=== PATIENT | female | born 1970 ===

== ENCOUNTER 2018-12-07 15:06 | Inpatient (IN) | payer MEDICAID, SELFPAY ==
[2018-12-07] MEDS ORDERED: Propranolol 1 mg/mL Inj IV STA (15:30)
[2018-12-07] MEDS ORDERED: Propranolol 1 mg/mL Inj ONE (15:52)
[2018-12-07 15:57] LABS: BASO % 0.3 % (0.0-2.0); EOS % 0.3 % (0.0-4.0); HEMOGLOBIN 10.2 g/dL (12.0-16.0); LYMPH # 2.1 K/uL (1.0-4.3); LYMPH % 23.4 % (20.0-40.0); MEAN CELL VOLUME 78.6 fl (81.0-99.0); MONO # 0.6 K/uL (0.0-0.8); MONO % 7.4 % (0.0-10.0); NEUT % 68.6 % (50.0-75.0); NRBC % 0.1 % (0.0-0.0); RBC 3.93 Mil/uL (3.80-5.20); RED CELL DISTRIBUTION WIDTH 15.3 % (11.5-14.5); WHITE BLOOD COUNT 8.8 K/uL (4.8-10.8)
[2018-12-07 16:03] LABS: INR 1.1; PROTHROMBIN TIME 12.4 Seconds (9.8-13.1)
--- NOTE | 2018-12-07 16:05 | ED PDOC ---
HPI: Hypertension/Hypotension Time Seen by Provider: 12/07/18 15:19 Chief Complaint (Nursing): Palpitations Chief Complaint (Provider): Palpitations History Per: Patient History/Exam Limitations: no limitations Onset/Duration Of Symptoms: Days (x6 months) Current Symptoms Are (Timing): Intermittent Episodes Associated Symptoms: Chest Pain (pressure), Other (lightheadedness and shortness of breath) Additional Complaint(s): Tonya Welch is a 48 year old female, with a past medical history of HTN, who presents to the emergency department complaining of intermittent palpitations over the last x6 months. Patient states palpitation come and go associated with lightheadedness, some chest pressure and shortness of breath. She was recently evaluated at the clinic and demonstrated she had hyperthyroidism. She started her medications x20 days ago, however palpitations persist. At her follow up visit today, she had severe tachycardia and was sent to the ER. Patient reports compliance with medications. She denies any syncopal episode or other medical complaints. PMD: Arron Fry Past Medical History Reviewed: Historical Data, Nursing Documentation, Vital Signs Vital Signs: Last Vital Signs Temp 98.7 F 12/07/18 15:11 Pulse 140 H 12/07/18 15:51 Resp 20 12/07/18 15:11 BP 176/89 H 12/07/18 15:11 Pulse Ox 99 12/07/18 15:11 - Medical History PMH: Hyperthyroidism - Surgical History Surgical History: No Surg Hx - Family History Family History: States: Hypertension - Social History Current smoker - smoking cessation education provided: No Alcohol: None Drugs: Denies - Home Medications Home Medications: Ambulatory Orders Medication Instructions Recorded Lisinopril [Zestril] 10 mg PO DAILY 12/07/18 methIMAzole [Tapazole] 5 mg PO BID 12/07/18 - Allergies Allergies/Adverse Reactions: Allergies Allergy/AdvReac Type Severity Reaction Status Date / Time No Known Allergies Allergy Verified 12/07/18 15:11 Review of Systems ROS Statement: Except As Marked, All Systems Reviewed And Found Negative Cardiovascular: Positive for: Chest Pain (pressure), Palpitations, Light Headedness Respiratory: Positive for: Shortness of Breath Neurological: Negative for: Other (syncope) Physical Exam - Reviewed Nursing Documentation Reviewed: Yes Vital Signs Reviewed: Yes - Physical Exam Appears: Positive for: No Acute Distress, Uncomfortable Head Exam: Positive for: ATRAUMATIC, NORMAL INSPECTION, NORMOCEPHALIC Skin: Positive for: Warm, Dry Eye Exam: Positive for: EOMI, PERRL ENT: Positive for: Normal ENT Inspection Neck: Positive for: Painless ROM, Supple Cardiovascular/Chest: Positive for: Tachycardia (regular rhythm). Negative for: Murmur Respiratory: Positive for: Normal Breath Sounds. Negative for: Respiratory Distress Gastrointestinal/Abdominal: Positive for: Soft. Negative for: Tenderness Back: Positive for: Normal Inspection. Negative for: Muscle Spasm Extremity: Positive for: Normal ROM (upper and lower extremities). Negative for: Deformity Lymphatic: Negative for: Adenopathy Neurologic/Psych: Positive for: Alert, Oriented, Mood/Affect (Mildly anxious) - Laboratory Results Result Diagrams: 12/07/18 15:33 12/07/18 15:33 - ECG ECG: Positive for: Interpreted By Nm ECG Rhythm: Positive for: Sinus Tachycardia, Nonspecific Changes O2 Sat by Pulse Oximetry: 99 (RA) Pulse Ox Interpretation: Normal - Radiology X-Ray: Interpreted by Nm X-Ray Interpretation: No Acute Disease Medical Decision Making Medical Decision Making: Time: 15:19 Initial Impression: hyperthyroidism/Thyroitoxicosis Initial Plan: --Type and screen --EKG --BNP --CMP --Drug screen, urine --Free T4 --Magnesium --Phosphorus --T3 --TSH --Troponin I --Urine --Urine dipstick --CBC w/ differential --PTT --PT --Chest portable [RAD] --Thyroglobulin panel --Propranolol Inj 1 mg IV --Reevaluation 15:30 -Patient to be hospitalized for uncontrollable thyroids. -MARI Zhu [facility] resident - Scribe Attestation: Documented by Prasanth Barton, acting as a scribe for Malka Ypa MD Provider Scribe Attestation: All medical record entries made by the Scribe were at my direction and personally dictated by me. I have reviewed the chart and agree that the record accurately reflects my personal performance of the history, physical exam, medical decision making, and the department course for this patient. I have also personally directed, reviewed, and agree with the discharge instructions and disposition. Time: 1700 -- DW Dr Baum Hospitalist and transferred care. 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 Blanco. Orders placed as per discussion. Scribe Attestation: Documented by Taz Cintron, acting as a scribe for Malka Yap MD. Provider Scribe Attestation: All medical record entries made by the Scribe were at my direction and personally dictated by me. I have reviewed the chart and agree that the record accurately reflects my personal performance of the history, physical exam, medical decision making, and the department course for this patient. I have also personally directed, reviewed, and agree with the discharge instructions and disposition. Disposition - Clinical Impression Clinical Impression: Hyperthyroidism, Thyrotoxicosis Counseled Patient/Family Regarding: Studies Performed, Diagnosis - Disposition Disposition Time: 16:00 Condition: FAIR - Pt Status Changed To: Hospital Disposition Of: Inpatient - Admit Certification Admit to Inpatient:: After my assessment, the patient will require hospitalization for at least two midnights. This is because of the severity of symptoms shown, intensity of services needed, and/or the medical risk in this patient being treated as an outpatient. - POA Present On Arrival: None
[2018-12-07 16:06] LABS: PARTIAL THROMBOPLASTIN TIME 39.7 Seconds (25.6-37.1)
[2018-12-07 16:14] LABS: ALB/GLOB RATIO 1.1 (1.0-2.1); ALBUMIN 4.4 g/dL (3.5-5.0); ALT/SGPT 29 U/L (9-52); AST/SGOT 29 U/L (14-36); BLOOD UREA NITROGEN 8 mg/dl (7-17); GFR NON-AFRICAN AMERICAN > 60
[2018-12-07 16:25] LABS: B-TYPE NATRIURETIC PEPTIDE 914 pg/ml (0-450)
[2018-12-07 16:44] LABS: T3 5.51 nmol/L (1.49-2.60)
--- NOTE | 2018-12-07 17:06 | CP.PCM.HP ---
<Bernardo Longoria - Last Filed: 12/07/18 18:21> History of Present Illness - History of Present Illness History of Present Illness: 48 y/o F with a PMHx of recently diagnosed Hyperthyroidism, HTN was sent to ED from [facility] clinic due to tachycardia. Pt reports feeling palpitations, nervousness and shaking for several months. Pt reports 25 lb weight loss, her weight was 153 lbs 7 months ago and now 128 lbs. Pt has had diarrhea for ~7 months. Pt was initiated on Methimazole 5mg BID with NO improvement of symptoms. -LMP 11/28/18. Regular menses, 3 days of bleeding and 3 pads a day. Pt explains that menstrual blood has decreased remarkably since several months ago. PMD: Poornima Gaviria at [facility] Medications: Lisinopril 10mg, unspecified hypertriglyceridemia med, Methimazole 5mg BID PMHx: HTN (12 years ago) and hypertrglyceridemia PSHX: Cholecystectomy 10 years ago. FHx: Father with HTN, from ID last year. Mother has HTN, DM2 and OA. SHx: Denies tobacco. Ocassional alcohol. Denies recreational drugs. ED Course: --VS: HR 166-high, BP 176/89-high. --Propranolol 1mg IV and IV Methimazole 20mg administered. Present on Admission - Present on Admission Any Indicators Present on Admission: No Past Patient History - Past Social History Alcohol: None Drugs: Denies - ENDOCRINE/METABOLIC Hx Hyperthyroidism: Yes - PSYCHIATRIC Hx Substance Use: No Meds Allergies/Adverse Reactions: Allergies Allergy/AdvReac Type Severity Reaction Status Date / Time No Known Allergies Allergy Verified 12/07/18 15:11 Physical Exam - Constitutional Appears: No Acute Distress - Head Exam Head Exam: NORMOCEPHALIC Additional comments: Presence of ~3cm diameter circumscribed erythematous plaque with white scales on posterior neck. Presence of foreign viscous material with clumps of hair on superior head. - Eye Exam Eye Exam: EOMI, Normal appearance Additional comments: No prominent proptosis. - ENT Exam ENT Exam: Mucous Membranes Dry - Neck Exam Neck exam: Positive for: Full Rom, Thyromegaly (diffuse, more prominent on R lobe of thyroid. ). Negative for: Lymphadenopathy, Tenderness - Respiratory Exam Respiratory Exam: NORMAL BREATHING PATTERN. absent: Rales, Rhonchi, Wheezes, Respiratory Distress - Cardiovascular Exam Cardiovascular Exam: Tachycardia, +S1, +S2 - GI/Abdominal Exam GI & Abdominal Exam: Hyperactive Bowel Sounds, Soft. absent: Distended, Firm, Guarding, Tenderness - Extremities Exam Extremities exam: Positive for: full ROM, normal inspection. Negative for: pedal edema Additional comments: Presence of tremor on extension or bilateral arms. No pre-tibial edema. - Neurological Exam Neurological exam: Alert, Oriented x3 Results - Vital Signs Recent Vital Signs: Last Vital Signs Temp 98.7 F 12/07/18 15:11 Pulse 118 H 12/07/18 16:07 Resp 20 12/07/18 15:11 BP 176/89 H 12/07/18 15:11 Pulse Ox 99 12/07/18 16:15 - Labs Result Diagrams: 12/07/18 15:33 12/07/18 15:33 Labs: Laboratory Results - last 24 hr 12/07/18 12/07/18 12/07/18 15:33 15:33 15:33 WBC 8.8 RBC 3.93 Hgb 10.2 L Hct 30.9 L MCV 78.6 L MCH 26.0 L MCHC 33.0 RDW 15.3 H Plt Count 348 MPV 8.0 Neut % (Auto) 68.6 Lymph % (Auto) 23.4 Hand % (Auto) 7.4 Eos % (Auto) 0.3 Baso % (Auto) 0.3 Neut # (Auto) 6.0 Lymph # (Auto) 2.1 Hand # (Auto) 0.6 Eos # (Auto) 0.0 Baso # (Auto) 0.0 PT 12.4 INR 1.1 APTT 39.7 H Sodium 137 Potassium 3.3 L Chloride 100 Carbon Dioxide 23 Anion Gap 17 BUN 8 Creatinine 0.3 L Est GFR ( Amer) > 60 Est GFR (Non-Af Amer) > 60 Random Glucose 117 H Calcium 10.0 Phosphorus 3.7 Magnesium 1.6 Total Bilirubin 0.2 AST 29 ALT 29 Alkaline Phosphatase 156 H Troponin I < 0.0120 NT-Pro-B Natriuret Pep 914 H Total Protein 8.2 Albumin 4.4 Globulin 3.9 Albumin/Globulin Ratio 1.1 Free T4 Total T3 5.51 H TSH 3rd Generation < 0.02 L 12/07/18 15:33 WBC RBC Hgb Hct MCV MCH MCHC RDW Plt Count MPV Neut % (Auto) Lymph % (Auto) Hand % (Auto) Eos % (Auto) Baso % (Auto) Neut # (Auto) Lymph # (Auto) Hand # (Auto) Eos # (Auto) Baso # (Auto) PT INR APTT Sodium Potassium Chloride Carbon Dioxide Anion Gap BUN Creatinine Est GFR ( Amer) Est GFR (Non-Af Amer) Random Glucose Calcium Phosphorus Magnesium Total Bilirubin AST ALT Alkaline Phosphatase Troponin I NT-Pro-B Natriuret Pep Total Protein Albumin Globulin Albumin/Globulin Ratio Free T4 4.31 H Total T3 TSH 3rd Generation Assessment & Plan - Assessment and Plan (Free Text) Assessment: 48 y/o F with a PMHx of recently diagnosed hyperthyroidism, HTN and hypertriglyceridema admitted for evaluation and management of uncontrolled hyperthyroidism. PLAN: >Hyperthyroidism, uncontrolled --Tachycardia 166 at presentation, BP 176/89-high. --Endocrinology consult, Dr Blanco. --Thyroid panel and antibodies ordered. --Thyroid US ordered. --Methimazole 20mg stat dose. --Home med resume, F/U abattoir manager recommendations. >Microcytic anemia --Hgb 10.2-low, MCV 78.6-low --Likely anemia of crhonic disease (hypothyroidism, psoriasis) vs iron def iciency vs hypermetabolism --Considering anemia work-up: FOBT and iron studies. >Dermatitis, unspecified --Likely psoriasis >DVT Prophylaxis --SCD's --Lovenox Case discussed with Aviva Alvarez PGY-2 - Date & Time Date: 12/07/18 Time: 17:30 <Aviva Baum - Last Filed: 12/08/18 10:42> Results - Vital Signs Recent Vital Signs: Last Vital Signs Temp 98.3 F 12/08/18 07:51 Pulse 99 H 12/08/18 09:25 Resp 18 12/08/18 07:51 BP 136/74 12/08/18 09:25 Pulse Ox 99 12/08/18 07:51 - Labs Result Diagrams: 12/08/18 04:30 12/08/18 04:30 Labs: Laboratory Results - last 24 hr 12/07/18 12/07/18 12/07/18 15:33 15:33 15:33 WBC 8.8 RBC 3.93 Hgb 10.2 L Hct 30.9 L MCV 78.6 L MCH 26.0 L MCHC 33.0 RDW 15.3 H Plt Count 348 MPV 8.0 Neut % (Auto) 68.6 Lymph % (Auto) 23.4 Hand % (Auto) 7.4 Eos % (Auto) 0.3 Baso % (Auto) 0.3 Neut # (Auto) 6.0 Lymph # (Auto) 2.1 Hand # (Auto) 0.6 Eos # (Auto) 0.0 Baso # (Auto) 0.0 PT 12.4 INR 1.1 APTT 39.7 H Sodium 137 Potassium 3.3 L Chloride 100 Carbon Dioxide 23 Anion Gap 17 BUN 8 Creatinine 0.3 L Est GFR ( Amer) > 60 Est GFR (Non-Af Amer) > 60 Random Glucose 117 H Calcium 10.0 Phosphorus 3.7 Magnesium 1.6 Iron TIBC % Saturation Ferritin Total Bilirubin 0.2 AST 29 ALT 29 Alkaline Phosphatase 156 H Troponin I < 0.0120 NT-Pro-B Natriuret Pep 914 H Total Protein 8.2 Albumin 4.4 Globulin 3.9 Albumin/Globulin Ratio 1.1 Triglycerides Cholesterol LDL Cholesterol Direct HDL Cholesterol Free T4 Thyroxine (T4) Total T3 5.51 H Thyroglobulin, Quant TSH 3rd Generation < 0.02 L Urine Color Urine Clarity Urine pH Ur Specific [place] Urine Protein Urine Glucose (UA) Urine Ketones Urine Blood Urine Nitrate Urine Bilirubin Urine Urobilinogen Ur Leukocyte Esterase Urine RBC (Auto) Urine Microscopic WBC Ur Squamous Epith Cells Urine Bacteria Urine Opiates Screen Urine Methadone Screen Ur Barbiturates Screen Ur Phencyclidine Scrn Ur Amphetamines Screen U Benzodiazepines Scrn U Oth Cocaine Metabols U Cannabinoids Screen Thyroglobulin Antibody 12/07/18 12/07/18 12/07/18 15:33 15:33 16:31 WBC RBC Hgb Hct MCV MCH MCHC RDW Plt Count MPV Neut % (Auto) Lymph % (Auto) Hand % (Auto) Eos % (Auto) Baso % (Auto) Neut # (Auto) Lymph # (Auto) Hand # (Auto) Eos # (Auto) Baso # (Auto) PT INR APTT Sodium Potassium Chloride Carbon Dioxide Anion Gap BUN Creatinine Est GFR ( Amer) Est GFR (Non-Af Amer) Random Glucose Calcium Phosphorus Magnesium Iron TIBC % Saturation Ferritin Total Bilirubin AST ALT Alkaline Phosphatase Troponin I NT-Pro-B Natriuret Pep Total Protein Albumin Globulin Albumin/Globulin Ratio Triglycerides Cholesterol LDL Cholesterol Direct HDL Cholesterol Free T4 4.31 H Thyroxine (T4) Total T3 Thyroglobulin, Quant 267.3 H TSH 3rd Generation Urine Color Urine Clarity Urine pH Ur Specific [place] Urine Protein Urine Glucose (UA) Urine Ketones Urine Blood Urine Nitrate Urine Bilirubin Urine Urobilinogen Ur Leukocyte Esterase Urine RBC (Auto) Urine Microscopic WBC Ur Squamous Epith Cells Urine Bacteria Urine Opiates Screen Negative Urine Methadone Screen Negative Ur Barbiturates Screen Negative Ur Phencyclidine Scrn Negative Ur Amphetamines Screen Negative U Benzodiazepines Scrn Negative U Oth Cocaine Metabols Negative U Cannabinoids Screen Negative Thyroglobulin Antibody 97 H 12/07/18 12/08/18 12/08/18 16:33 04:30 04:30 WBC 8.9 RBC 3.80 Hgb 9.8 L Hct 30.1 L MCV 79.2 L MCH 25.8 L MCHC 32.6 L RDW 15.6 H Plt Count 325 MPV Neut % (Auto) Lymph % (Auto) Hand % (Auto) Eos % (Auto) Baso % (Auto) Neut # (Auto) Lymph # (Auto) Hand # (Auto) Eos # (Auto) Baso # (Auto) PT INR APTT Sodium 139 Potassium 3.5 L Chloride 102 Carbon Dioxide 24 Anion Gap 17 BUN 6 L Creatinine 0.3 L Est GFR ( Amer) > 60 Est GFR (Non-Af Amer) > 60 Random Glucose 95 Calcium 10.0 Phosphorus Magnesium Iron TIBC % Saturation Ferritin Total Bilirubin AST ALT Alkaline Phosphatase Troponin I NT-Pro-B Natriuret Pep Total Protein Albumin Globulin Albumin/Globulin Ratio Triglycerides 120 Cholesterol 158 LDL Cholesterol Direct 86 HDL Cholesterol 38 Free T4 Thyroxine (T4) 24.2 H Total T3 Thyroglobulin, Quant TSH 3rd Generation < 0.02 L Urine Color Straw Urine Clarity Slighty-cloudy Urine pH 7.0 Ur Specific Ruston < 1.005 Urine Protein Negative Urine Glucose (UA) Neg Urine Ketones Negative Urine Blood Negative Urine Nitrate Negative Urine Bilirubin Negative Urine Urobilinogen 0.2-1.0 Ur Leukocyte Esterase Negative Urine RBC (Auto) 2 Urine Microscopic WBC 1 Ur Squamous Epith Cells 1 Urine Bacteria Rare Urine Opiates Screen Urine Methadone Screen Ur Barbiturates Screen Ur Phencyclidine Scrn Ur Amphetamines Screen U Benzodiazepines Scrn U Oth Cocaine Metabols U Cannabinoids Screen Thyroglobulin Antibody 12/08/18 12/08/18 09:18 09:18 WBC RBC Hgb Hct MCV MCH MCHC RDW Plt Count MPV Neut % (Auto) Lymph % (Auto) Hand % (Auto) Eos % (Auto) Baso % (Auto) Neut # (Auto) Lymph # (Auto) Hand # (Auto) Eos # (Auto) Baso # (Auto) PT INR APTT Sodium Potassium Chloride Carbon Dioxide Anion Gap BUN Creatinine Est GFR ( Amer) Est GFR (Non-Af Amer) Random Glucose Calcium Phosphorus Magnesium Iron 86 TIBC 243 L % Saturation 35 Ferritin 524.0 H Total Bilirubin AST ALT Alkaline Phosphatase Troponin I NT-Pro-B Natriuret Pep Total Protein Albumin Globulin Albumin/Globulin Ratio Triglycerides Cholesterol LDL Cholesterol Direct HDL Cholesterol Free T4 Thyroxine (T4) Total T3 Thyroglobulin, Quant TSH 3rd Generation Urine Color Urine Clarity Urine pH Ur Specific [place] Urine Protein Urine Glucose (UA) Urine Ketones Urine Blood Urine Nitrate Urine Bilirubin Urine Urobilinogen Ur Leukocyte Esterase Urine RBC (Auto) Urine Microscopic WBC Ur Squamous Epith Cells Urine Bacteria Urine Opiates Screen Urine Methadone Screen Ur Barbiturates Screen Ur Phencyclidine Scrn Ur Amphetamines Screen U Benzodiazepines Scrn U Oth Cocaine Metabols U Cannabinoids Screen Thyroglobulin Antibody Attending/Attestation - Attestation I have personally seen and examined this patient.: Yes I have fully participated in the care of the patient.: Yes I have reviewed all pertinent clinical information: Yes Notes (Text): 12/08/18 10:42 agree with findings and plan as above
[2018-12-07 17:10] LABS: SQUAMOUS EPITHIAL 1 /hpf (0-5); URINE BACTERIA RARE (<OCC); URINE BILIRUBIN NEGATIVE (NEGATIVE); URINE BLOOD NEGATIVE (NEGATIVE); URINE CLARITY SLIGHTY-CLOUDY (Clear); URINE COLOR STRAW (YELLOW); URINE GLUCOSE (UA) NEG (NEGATIVE); URINE PROTEIN NEGATIVE (NEGATIVE); URINE UROBILINOGEN 0.2-1.0 mg/dL (0.2-1.0)
[2018-12-07 17:20] LABS: URINE LEUKOCYTE ESTERASE NEGATIVE Leu/uL (Negative)
[2018-12-07 17:30] LABS: BARBITURATES, UR NEGATIVE (NEGATIVE); BENZODIAZEPINES, UR NEGATIVE (NEGATIVE); OPIATES, UR NEGATIVE (NEGATIVE); PHENCYCLIDINE, UR NEGATIVE (NEGATIVE)
[2018-12-07] MEDS ORDERED: Potassium Chloride 20 mEq/15 ml LIQ UD PO ONE (17:37)
[2018-12-07 20:39] VITALS: RESP 18
[2018-12-08 04:56] LABS: THYROGLOBULIN 267.3 ng/mL (2.8-40.9)
[2018-12-08 05:45] LABS: HEMOGLOBIN 9.8 g/dL (12.0-16.0); MEAN CELL VOLUME 79.2 fl (81.0-99.0); MEAN CORPUSCULAR HEMOGLOBIN 25.8 pg (27.0-31.0); MEAN CORPUSCULAR HGB CONC 32.6 g/dL (33.0-37.0); RBC 3.8 Mil/uL (3.80-5.20); RED CELL DISTRIBUTION WIDTH 15.6 % (11.5-14.5); WHITE BLOOD COUNT 8.9 K/uL (4.8-10.8)
[2018-12-08] MEDS ORDERED: Influenza Vaccine 60 mcg/0.5 mL SYR (4YR UP) IM ONE (06:00)
[2018-12-08] MEDS ORDERED: Pneumococcal 23-Valent Vaccine IM ONE (06:00)
[2018-12-08 06:06] LABS: LDL CHOLESTEROL 86 mg/dL (0-129)
[2018-12-08 06:09] LABS: BLOOD UREA NITROGEN 6 mg/dl (7-17); GFR NON-AFRICAN AMERICAN > 60; HDL CHOLESTEROL 38 MG/DL (30-70)
[2018-12-08] MEDS ORDERED: Potassium Chloride 20 mEq ER Tab PO ONE (06:10)
--- NOTE | 2018-12-08 06:23 | CON ---
DATE: 12/07/2018 LOCATION: Room 404. HISTORY OF PRESENT ILLNESS: This is a 48-year-old female with known history of hyperthyroidism, admitted with persistent palpitations and sinus tachycardia and is now being referred for endocrine evaluation and management. PAST MEDICAL HISTORY: History of hyperthyroidism, being followed closely at the [facility] and only on a low dose of Tapazole, given as 5 mg b.i.d., as noted. History of hypertension and dyslipidemia. FAMILY HISTORY: Positive for diabetes and hypertension. No known thyroid endocrinopathy. SOCIAL HISTORY: The patient has supportive family. No known substance use. REVIEW OF SYSTEMS: Admits to generalized body weakness with episodic dizziness and lightheadedness. Also admits to marked insomnia, restlessness, and agitation. Also admits to precordial chest pain with episodic bouts of palpitations, worse in the last few days prior to admission. Her oral intake has been variable with nausea, dyspepsia, and moderate hyperdefecation. PHYSICAL EXAMINATION: GENERAL: This is an average built female in no apparent distress. VITAL SIGNS: Blood pressure of 140/80, pulse of 120 beats per minute and regular, temperature 98, respirations 20. Height is 5 feet 3 inches. Weight is 128 pounds. HEENT: Head: Normocephalic. Eyes: Anicteric with pink conjunctivae. Funduscopy not possible at this time. Ears, Nose, and Throat: Otherwise normal. NECK: Supple. Thyroid gland shows nodular thyromegaly, which is firm and nontender with no overt thyroid bruits. HEART: Hyperdynamic precordium. S1 and S2, rapid and regular. LUNGS: Clear to auscultation. ABDOMEN: Flat, soft with positive bowel sounds. EXTREMITIES: No peripheral edema. Pulses are +2 bilaterally. LABORATORY DATA: TSH is less than 0.02 with a free T4 of 4.31 and a total T3 of 5.51. ASSESSMENT: This is a 48-year-old female with overt thyrotoxicosis, presenting here with marked hyperthyroidism both historically, clinically, and biochemically related to underlying Graves disease with a concomitant diffuse toxic goiter. PLAN OF MANAGEMENT: We will modify to a much higher dosing of her medical therapy with Tapazole given as 10 mg p.o. t.i.d. after meals, as ordered. We will also give a stat dose of Tapazole at 20 mg tonight as ordered and discuss with the ER physician. We will obtain a thyroid stimulating immunoglobulin and a thyroid peroxidase antibody to confirm and/or indicate the presence of underlying thyroid autoimmunity. We will also add a total T4 and TSH for tomorrow and titrate her dose accordingly. A thyroid ultrasound can be done on the outpatient, as noted. We will follow and advise accordingly. Merna Blanco MD
[2018-12-08] MEDS ORDERED: Magnesium Sulfate 2 gm/50 ml 2 GM/50 ML BAG IVPB ONE (08:21)
[2018-12-08] MEDS ORDERED: methIMAzole 5 MG TAB PO SCH (09:00)
[2018-12-08 09:30] LABS: IRON 86 ug/dL (37-170)
[2018-12-08 09:42] LABS: % IRON SATURATION 35 % (20-55); TOTAL IRON BINDING CAPACITY 243 ug/dL (250-450)
--- NOTE | 2018-12-08 11:56 | US ---
Date of service: 12/07/2018 HISTORY: thyromegaly TECHNIQUE: Sonographic evaluation of the thyroid gland. COMPARISON: FINDINGS: RIGHT LOBE: Measures 2.9 x 3.8 x 5.9 cm. Heterogenous echotexture, normal vascularity Nodules: Solitary complex solid and cystic nodule right upper pole 0.7 x 1.2 x 1.2 cm LEFT LOBE: Measures . 2.8 x 3.7 x 6.9 cm. Heterogenous echotexture, normal vascularity Nodules: Solitary primarily solid nodule mid and lower pole region with mild increased vascularity measures 2.1 x 2.6 x 2.9 cm ISTHMUS: Measures 10.5 mm. Nodules: None OTHER FINDINGS: None . IMPRESSION: Enlarged heterogeneous gland bilaterally, including the isthmus. Dominant nodule lower pole left lobe. The absence of prior studies, follow-up recommended. Recommendations for follow-up: 1. Radionuclide Scan to assess Thyroid function and to evaluate the thyroid for the presence of hot or cold nodules. 2. Fine needle aspiration (FNA) should also be considered as an invasive diagnostic tool in the assessment of findings described above.
[2018-12-08 12:19] VITALS: BP 119/64; PULSE 86; TEMP 98.4; O2SAT 96
--- NOTE | 2018-12-08 12:41 | CP.PCM.DIS ---
Provider - Provider Date of Admission: 12/07/18 16:05 Attending physician: Arron Fry MD Primary care physician: [facility] Consults: 12/07/18 17:29 Endocrinology Consult Stat Comment: Consulting Provider: Merna Blanco Consulting Physician: Merna Blanco Reason for Consult: Uncontrolled hyperthyroidism Time Spent in preparation of Discharge (in minutes): 20 Hospital Course - Lab Results Lab Results: Most Recent Lab Values WBC 8.9 K/uL (4.8-10.8) 12/08/18 04:30 RBC 3.80 Mil/uL (3.80-5.20) 12/08/18 04:30 Hgb 9.8 g/dL (12.0-16.0) L 12/08/18 04:30 Hct 30.1 % (34.0-47.0) L 12/08/18 04:30 MCV 79.2 fl (81.0-99.0) L 12/08/18 04:30 MCH 25.8 pg (27.0-31.0) L 12/08/18 04:30 MCHC 32.6 g/dL (33.0-37.0) L 12/08/18 04:30 RDW 15.6 % (11.5-14.5) H 12/08/18 04:30 Plt Count 325 K/uL (130-400) 12/08/18 04:30 MPV 8.0 fl (7.2-11.7) 12/07/18 15:33 Neut % (Auto) 68.6 % (50.0-75.0) 12/07/18 15:33 Lymph % (Auto) 23.4 % (20.0-40.0) 12/07/18 15:33 Bryan % (Auto) 7.4 % (0.0-10.0) 12/07/18 15:33 Eos % (Auto) 0.3 % (0.0-4.0) 12/07/18 15:33 Baso % (Auto) 0.3 % (0.0-2.0) 12/07/18 15:33 Neut # (Auto) 6.0 K/uL (1.8-7.0) 12/07/18 15:33 Lymph # (Auto) 2.1 K/uL (1.0-4.3) 12/07/18 15:33 Bryan # (Auto) 0.6 K/uL (0.0-0.8) 12/07/18 15:33 Eos # (Auto) 0.0 K/uL (0.0-0.7) 12/07/18 15:33 Baso # (Auto) 0.0 K/uL (0.0-0.2) 12/07/18 15:33 PT 12.4 Seconds (9.8-13.1) 12/07/18 15:33 INR 1.1 12/07/18 15:33 APTT 39.7 Seconds (25.6-37.1) H 12/07/18 15:33 Sodium 139 mmol/l (132-148) 12/08/18 04:30 Potassium 3.5 MMOL/L (3.6-5.0) L 12/08/18 04:30 Chloride 102 mmol/L (98-107) 12/08/18 04:30 Carbon Dioxide 24 mmol/L (22-30) 12/08/18 04:30 Anion Gap 17 (10-20) 12/08/18 04:30 BUN 6 mg/dl (7-17) L 12/08/18 04:30 Creatinine 0.3 mg/dl (0.7-1.2) L 12/08/18 04:30 Est GFR ( Amer) > 60 12/08/18 04:30 Est GFR (Non-Af Amer) > 60 12/08/18 04:30 Random Glucose 95 mg/dL (65-105) 12/08/18 04:30 Calcium 10.0 mg/dL (8.4-10.2) 12/08/18 04:30 Phosphorus 3.7 mg/dl (2.5-4.5) 12/07/18 15:33 Magnesium 1.6 MG/DL (1.6-2.3) 12/07/18 15:33 Iron 86 ug/dL (37-170) 12/08/18 09:18 TIBC 243 ug/dL (250-450) L 12/08/18 09:18 % Saturation 35 % (20-55) 12/08/18 09:18 Ferritin 524.0 ng/Ml (6.24-137.0) H 12/08/18 09:18 Total Bilirubin 0.2 mg/dl (0.2-1.3) 12/07/18 15:33 AST 29 U/L (14-36) 12/07/18 15:33 ALT 29 U/L (9-52) 12/07/18 15:33 Alkaline Phosphatase 156 U/L (38-126) H 12/07/18 15:33 Troponin I < 0.0120 ng/mL (0.00-0.120) 12/07/18 15:33 NT-Pro-B Natriuret Pep 914 pg/ml (0-450) H 12/07/18 15:33 Total Protein 8.2 G/DL (6.3-8.2) 12/07/18 15:33 Albumin 4.4 g/dL (3.5-5.0) 12/07/18 15:33 Globulin 3.9 gm/dL (2.2-3.9) 12/07/18 15:33 Albumin/Globulin Ratio 1.1 (1.0-2.1) 12/07/18 15:33 Triglycerides 120 mg/DL (0-149) 12/08/18 04:30 Cholesterol 158 mg/dL (0-199) 12/08/18 04:30 LDL Cholesterol Direct 86 mg/dL (0-129) 12/08/18 04:30 HDL Cholesterol 38 MG/DL (30-70) 12/08/18 04:30 Free T4 4.31 ng/dL (0.78-2.19) H 12/07/18 15:33 Thyroxine (T4) 24.2 ug/dl (5.5-11.0) H 12/08/18 04:30 Total T3 5.51 nmol/L (1.49-2.60) H 12/07/18 15:33 Thyroglobulin, Quant 267.3 ng/mL (2.8-40.9) H 12/07/18 15:33 TSH 3rd Generation < 0.02 mIU/ML (0.46-4.68) L 12/08/18 04:30 Urine Color Straw (YELLOW) 12/07/18 16:33 Urine Clarity Slighty-cloudy (Clear) 12/07/18 16:33 Urine pH 7.0 (5.0-8.0) 12/07/18 16:33 Ur Specific [place] < 1.005 (1.003-1.030) 12/07/18 16:33 Urine Protein Negative mg/dL (NEGATIVE) 12/07/18 16:33 Urine Glucose (UA) Neg mg/dL (NEGATIVE) 12/07/18 16:33 Urine Ketones Negative mg/dL (NEGATIVE) 12/07/18 16:33 Urine Blood Negative (NEGATIVE) 12/07/18 16:33 Urine Nitrate Negative (NEGATIVE) 12/07/18 16:33 Urine Bilirubin Negative (NEGATIVE) 12/07/18 16:33 Urine Urobilinogen 0.2-1.0 mg/dL (0.2-1.0) 12/07/18 16:33 Ur Leukocyte Esterase Negative Betty/uL (Negative) 12/07/18 16:33 Urine RBC (Auto) 2 /hpf (0-3) 12/07/18 16:33 Urine Microscopic WBC 1 /hpf (0-5) 12/07/18 16:33 Ur Squamous Epith Cells 1 /hpf (0-5) 12/07/18 16:33 Urine Bacteria Rare (<OCC) 12/07/18 16:33 Urine Opiates Screen Negative (NEGATIVE) 12/07/18 16:31 Urine Methadone Screen Negative (NEGATIVE) 12/07/18 16:31 Ur Barbiturates Screen Negative (NEGATIVE) 12/07/18 16:31 Ur Phencyclidine Scrn Negative (NEGATIVE) 12/07/18 16:31 Ur Amphetamines Screen Negative (NEGATIVE) 12/07/18 16:31 U Benzodiazepines Scrn Negative (NEGATIVE) 12/07/18 16:31 U Oth Cocaine Metabols Negative (NEGATIVE) 12/07/18 16:31 U Cannabinoids Screen Negative (NEGATIVE) 12/07/18 16:31 Thyroglobulin Antibody 97 IU/mL (< OR = 1) H 12/07/18 15:33 - Hospital Course Hospital Course: 48 y/o F with a PMHx of Hyperthyroidism diagnosed [address] [facility] and HTN was sent to ED from clinic due to tachycardia. Patient was complaining of palpitations , with no CP no dyspnea.She also admits to weight loss more than 30 lbs. She was found to have sinus tachycardia with HR 166 in ER Her lab work up showed TSH < 0.02 T3 5.51 T4 24 Thyroglobulin 267 Hgb 9.8 She was admitted in telemetry for monitoring and endo was consulted She was given 20 mg Methimazole stat dose and started on Merthimazole 10 mg po TID She was also started on Propranolol 40 mg PO bId for tachycardia [place] US showed :Enlarged heterogeneous gland bilaterally, including the isthmus. Dominant nodule lower pole left lobe. The absence of prior studies, follow-up recommended. Recommendations for follow-up: 1. Radionuclide Scan to assess Thyroid function and to evaluate the thyroid for the presence of hot or cold nodules. 2. Fine needle aspiration (FNA) should also be considered as an invasive diagnostic tool in the assessment of findings described above. Patient at present doing well, denies any palpitations and HR controlled HR 88. Discussed with Endo and cleared patient for discharge on current treatment She will need to follow up with [facility] in 1 week with repeat thyroid hormone levels. All test results explained to patient and questions answered . She was also noted to have 2 small plaque hyperkeratotic lesions with stuck on appearance on the head and a small on the abdomen . Hydrocortisone topical lotion prescribed for now for suspicious contact dermatitis and seborrheic dermatitis vs keratosis. Will need follow up at Clinic DX 1.Uncontrolled Hyperthyroidism -- increased Methimazole dose from 5 mg BID to 10 mg po TID 2.Sinus tachycardia secondary to hyperthyroidism -- increased dose of Methimazole and started on Propranolol 40 mg po BID 3. Hypertension - continue home medications lisinopril /HCTZ 4. Dyslipidemia- on Fenofibrate at home , controlled 4. Suspected seborrheic dermatitis vs keratosis - start hydrocortisone topical , shampoo wash Discharge Exam - Head Exam Head Exam: NORMOCEPHALIC - Eye Exam Eye Exam: EOMI, Normal appearance, PERRL Pupil Exam: NORMAL ACCOMODATION - ENT Exam ENT Exam: Mucous Membranes Moist, Normal Exam - Neck Exam Neck exam: Full Rom, Normal Inspection - Respiratory Exam Respiratory Exam: Clear to PA & Lateral, NORMAL BREATHING PATTERN. absent: Rales, Rhonchi, Wheezes, Respiratory Distress - Cardiovascular Exam Cardiovascular Exam: REGULAR RHYTHM, RRR, +S1, +S2. absent: JVD - GI/Abdominal Exam GI & Abdominal Exam: Normal Bowel Sounds, Soft. absent: Distended, Guarding, Rebound, Tenderness - Rectal Exam Rectal Exam: Deferred - Extremities Exam Extremities exam: normal capillary refill, normal inspection, pedal pulses present - Back Exam Back exam: NORMAL INSPECTION - Neurological Exam Neurological exam: Alert, CN II-XII Intact, Oriented x3, Reflexes Normal - Psychiatric Exam Psychiatric exam: Normal Affect, Normal Mood - Skin Skin Exam: Dry, Intact, Normal Color, Warm Additional comments: 2 lesions with hyperkeratotic surface with stuck on appearance on occipital area and occipitus small papule below umbilicus Discharge Plan - Discharge Medications Prescriptions: Methimazole 10 mg PO TID #90 tablet Propranolol [Inderal] 40 mg PO BID #60 tab - Follow Up Plan Condition: FAIR Disposition: HOME/ ROUTINE Patient education suggested?: Yes Instructions: Hyperthyroidism (Overactive Thyroid) (DC) Additional Instructions: please follow up with primary doctor in 1-2 weeks Referrals: [facility] [Outside]
--- NOTE | 2018-12-08 12:50 | CARD ---
APPROVED REPORT Date of service: 12/07/2018 EKG Measurement Heart [id number] <Conclusion> Sinus tachycardia Nonspecific ST abnormality Abnormal ECG
--- NOTE | 2018-12-08 13:12 | RAD ---
Date of service: 12/07/2018 HISTORY: tachycardia COMPARISON: No prior. FINDINGS: LUNGS: No active pulmonary disease. PLEURA: No significant pleural effusion identified, no pneumothorax apparent. CARDIOVASCULAR: No atherosclerotic calcification present Normal. OSSEOUS STRUCTURES: No significant abnormalities. VISUALIZED UPPER ABDOMEN: Normal. OTHER FINDINGS: None. IMPRESSION: No active disease. Concordant results with the preliminary interpretation rendered by the emergency department physician procedure.
--- NOTE | 2018-12-08 18:39 | PN ---
DATE: 12/08/2018 ENDOCRINOLOGY FOLLOWUP NOTE LOCATION: Room 404. SUBJECTIVE: This is a 48-year-old female with overt hyperthyroidism noted both historically, clinically and biochemically, presenting here with hyperadrenergic manifestation from sinus tachycardia and is now being followed closely for metabolic management. LABORATORY DATA: Her repeat thyroid studies today showed a total T4 of 24.2 with a TSH of less than 0.02 and a thyroglobulin level of 267.3. Her free T4 is 4.1. Her chemistry showed a BUN of 6, sodium 139, potassium 3.5, chloride 102, CO2 of 24, glucose 95 and creatinine 0.3. ASSESSMENT: This is a 48-year-old female with overt hyperthyroidism noted both historically, clinically and biochemically, clearly with marked thyrotoxicosis as noted thereof. She clearly has underlying Graves disease and the thyroid antibodies are pending at this time. PLAN OF MANAGEMENT: We will continue the modified medical therapy with the higher dose of Tapazole given as 10 mg p.o. t.i.d. after meals as ordered. We will continue the propranolol given as 40 mg b.i.d. after meals as ordered. We will titrate the optimize metabolic control. We will follow and advise accordingly. Merna Blanco MD
== END 2018-12-08 14:10 | disposition home or self-care (01) | DRG 424 ==
LOC: H.ER 15:06 → H.ERHOLD 16:05 → H.TEL 20:32
PROVIDERS: ADMIT Family Medicine; ATTEND Family Medicine
PROC: 3E0234Z Introduction of Serum, Toxoid and Vaccine into Muscle, Percutaneous Approach (ICD-10-PCS; principal; 2018-12-08)
PROC: 3E02340 Introduction of Influenza Vaccine into Muscle, Percutaneous Approach (ICD-10-PCS; 2018-12-08)
DX: E05.10 Thyrotoxicosis with toxic single thyroid nodule without thyrotoxic crisis or storm (principal); I10 Essential (primary) hypertension; D63.8 Anemia in other chronic diseases classified elsewhere; E78.5 Hyperlipidemia, unspecified; Z23 Encounter for immunization; E78.1 Pure hyperglyceridemia; L40.9 Psoriasis, unspecified